=== PATIENT | male | born 1985 | race Caucasian/White ===

== ENCOUNTER 2017-01-13 13:15 | Day surgery (SDC) | payer OTHER ==
--- NOTE | ~2017-01-13 | OP ---
Record Of Operation [facility] [address] [place]. [address] NAME: DANA ATKINSON : 83 STATUS : [facility]#: [id number] AGE: 31 ADM/REG DATE : 01/13/17 MR#: [id number] REPORT SERV DATE: 01/16/17 DICTATED BY: KIKO FALCON DATE: 01/15/17 REPORT STATUS : Draft TRANSCRIBED BY: PRESLEY DATE: 01/15/17 DATE OF PROCEDURE: 01/13/2017 TYPE OF OPERATION: Cystourethroscopy, right ureteroscopy with laser lithotripsy, and placement of right ureteral stent. PREOPERATIVE DIAGNOSES: Obstructive right UPJ stone. PREOPERATIVE DIAGNOSES: Obstructive right UPJ stone. INDICATIONS: Mr. Atkinson is a 31-year-old male with history of a right UPJ stone, obstructing stone. He has a history of uric acid stones. He has not been compliant with medical therapy. ANESTHESIA: General. COMPLICATIONS: None. IMPLANT: 6 x 26 right ureteral stent. SPECIMENS: None. NARRATIVE: The patient was brought to the operating room, identified by his wristband. General anesthesia was induced, and Levaquin was given for preoperative antibiotics. He was placed in dorsal lithotomy position and prepped and draped in sterile fashion. A cystoscope was placed into his urethra and then into his bladder. A 5-Persian open-ended catheter was placed into the distal ureter. Retrograde pyelogram was shot, which showed a stone in his proximal ureter, and this was not radiopaque. The wire was placed up to the level of the stone and the flexible ureteroscope was placed over the wall to the level of the stone. The stone was visualized. It was impacted. There was significant periureteral edema and swelling. Using a 200 micron holmium laser fiber, the stone was fragmented into innumerable submillimeter pieces, which were then washed back up into the kidney. The ureter did appear quite inflamed and edematous from where his stone was. However, there was no actual damage to the ureter from the procedure in any fashion. The kidney was inspected. There was a lot of inflammatory debris in the kidney which was irrigated clear. This was sent to pathology as the right renal pelvis culture. Several small stones were identified in the kidney. These were fragmented into very small pieces using the same 200 micron holmium laser fiber. The kidney was systematically inspected and all stone residual fragments were found to be less than a millimeter in size. The decision was made not to place a ureteral access sheath or to remove the stones due to numerous concerns includin. The size and quantity of the stones were not amenable to basket extraction. 2. I did not want to further aggravate the right proximal ureter. This time, decision was made to place a stent. A Sensor wire was placed back up to the level of the renal pelvis under fluoroscopic guidance. The scope was withdrawn to the ureter. Rest of the ureter was normal. A 6 x 26 ureteral stent was placed into the kidney under standard direct vision fashion. The proximal coil was coiled in the upper pole calyx. Record Of Operation [address] [place]. [address] NAME: DANA ATKINSON : 83 STATUS : [facility] PAT#: [id number] AGE: 31 ADM/REG DATE : 01/13/17 MR#: [id number] REPORT SERV DATE: 01/16/17 DICTATED BY: KIKO FALCON DATE: 01/15/17 REPORT STATUS : Draft TRANSCRIBED BY: PRESLEY DATE: 01/15/17 Distal coil was in the bladder under direct vision. The bladder was drained. The patient was awoken from anesthesia and transferred to the recovery room in stable condition. I will remove his stent in clinic in two weeks. TORRES/PRESLEY Kiko Falcon MD / [id number] CC: Kiko Falcon MD
[~2017-01-13 13:15] MED LIST: ENDOCET1 TAB PO; IBU800 PO; SYN.025B PO; UROCIT-K 5540 MG PO
[2017-01-13 14:31] LABS: ASCORBIC ACID (UR NOT ORDER) NEG (NEG); BILIRUBIN, URINE NEGATIVE (NEG); KETONE, URINE NEGATIVE (NEG); LEUKOCYTE ESTERASE(NOT OR NEG (NEG); WBC (NOT ORDERED) (RFLEX) 2 (0-5)
== END 2017-01-13 21:10 | disposition home or self-care (01) ==
LOC: SDC 13:15
PROVIDERS: Urology
PROC: 0T768DZ Dilation of Right Ureter with Intraluminal Device, Via Natural or Artificial Opening Endoscopic (ICD-10-PCS; 2017-01-13)
PROC: 0TF68ZZ Fragmentation in Right Ureter, Via Natural or Artificial Opening Endoscopic (ICD-10-PCS; principal; 2017-01-13 15:30)
DX: N20.1 Calculus of ureter (principal); E03.9 Hypothyroidism, unspecified
CPT/HCPCS: 74420; 81001; 87070; 87075; 87205; C1758; C2617; J2250; J2270; J2405; J3010; Q9967